=== PATIENT | male | born 1965 | race Caucasian/White ===

== ENCOUNTER 2016-11-14 18:14 | Emergency (ER) | payer OTHER ==
[~2016-11-14] VITALS: Ht 175.3 cm; Wt 95.3 kg
[~2016-11-14 18:14] MED LIST: [UNRECOGNIZED DRUG - REMARK]
[2016-11-14] MEDS ORDERED: HYDROCODONE/APAP 10/325MG 1 EA TABLET ONE (20:34)
[2016-11-14 20:53] VITALS: BP 158/80
[2016-11-14] MEDS ORDERED: HYDROCODONE/APAP 10/325MG 1 EA TABLET PO ONE (21:00)
== END 2016-11-14 20:53 | disposition home or self-care (01) ==
LOC: ER 18:17
DX: M54.5 Low back pain (principal); M25.561 Pain in right knee; M25.562 Pain in left knee; K74.60 Unspecified cirrhosis of liver; Z88.0 Allergy status to penicillin
CPT/HCPCS: 99283; A4606; Z7610

== ENCOUNTER 2016-11-16 00:22 | Emergency (ER) | payer OTHER ==
[~2016-11-16] VITALS: Ht 175.3 cm; Wt 68.0 kg
[2016-11-16] MEDS ORDERED: NITROGLYCERIN 0.4 MG/TAB BOTTLE SL ONE (00:30)
[2016-11-16] MEDS ORDERED: ASPIRIN 81 MG TAB.CHEW PO ONE (00:30)
[2016-11-16] MEDS ORDERED: NITROGLYCERIN 0.4 MG/TAB BOTTLE ONE (01:04)
[2016-11-16] MEDS ORDERED: ASPIRIN 81 MG TAB.CHEW ONE (01:04)
[2016-11-16 01:16] LABS: BASOPHILS % (AUTO) 0.3 % (0.0-2.0); DIFF TOTAL % 100 %; EOSINOPHILS % (AUTO) 0.5 % (0.0-6.0); HEMATOCRIT 50 % (39-51); HEMOGLOBIN 16.7 g/dL (13.5-17.5); LYMPHOCYTES # (AUTO) 2.2 /CMM (0.8-4.8); LYMPHOCYTES % (AUTO) 23.8 % (20.0-44.0); MEAN CORPUSCULAR HEMOGLOBIN 30 PG (26.0-33.0); MEAN CORPUSCULAR HGB CONC 33 g/dl (31.0-36.0); MEAN CORPUSCULAR VOLUME 91 fL (80-96); MONOCYTES # (AUTO) 0.8 /CMM (0.1-1.30); MONOCYTES % (AUTO) 8.8 % (2.0-12.0); NEUTROPHILS # (AUTO) 6.2 /CMM (1.8-8.9); NEUTROPHILS % (AUTO) 66.6 % (43.0-81.0); PLATELET COUNT (AUTO) 136 /CMM (150-450); RED BLOOD CELL COUNT(AUTO) 5.51 MIL/uL (4.5-6.0); WHITE BLOOD COUNT (AUTO) 9.4 K/uL (4.3-11.0)
[2016-11-16 01:25] LABS: ANION GAP 13 (5-14); CALCIUM, SERUM 8.7 mg/dL (8.5-10.1); CARBON DIOXIDE 26 mmol/L (21-32); CHLORIDE 100 mmol/L (98-107); CREATININE 0.8 mg/dL (0.6-1.3); GFR 102 mL/min (>60); GLUCOSE 110 mg/dL (74-106); POTASSIUM 3.7 mmol/L (3.5-5.1); SODIUM SERUM 136 mmol/L (136-145); UREA NITROGEN, BLOOD 9 mg/dL (7-18)
[2016-11-16 01:29] LABS: INR 1.17 (0.87-1.13); PROTHROMBIN TIME 12.7 SECS (9.5-12.7)
[2016-11-16 01:32] LABS: TROPONIN I < 0.017 ng/mL (0.00-0.056)
[2016-11-16 03:53] VITALS: BP 140/96
== END 2016-11-16 04:19 | disposition home or self-care (01) ==
LOC: ER 00:24
DX: G89.4 Chronic pain syndrome (principal); K74.60 Unspecified cirrhosis of liver; Z72.89 Other problems related to lifestyle; Z76.5 Malingerer [conscious simulation]; Z88.0 Allergy status to penicillin
CPT/HCPCS: 36415; 71010-TC; 80048-TC; 84484-TC; 85025-TC; 85730-TC; A4606; Z7610